=== PATIENT | female | born 1975 | race Caucasian/White ===

== ENCOUNTER 2022-01-13 13:46 | Outpatient (CLI) | payer OTHER, SELFPAY ==
--- NOTE | 2022-01-13 14:00 | CRLHL7_ITS ---
For Patients: As a result of the Century Cures Act, medical imaging exams and procedure reports are released immediately into your electronic medical record. You may view this report before your referring provider. If you have questions, please contact your health care provider. BILATERAL SCREENING MAMMOGRAM WITH COMPUTER-AIDED DETECTION AND TOMOSYNTHESIS TECHNIQUE: CC and MLO views were obtained. These mammographic images have been obtained using full-field digital technique. These mammographic images were interpreted with the benefit of computer-aided detection. Breast Tomosynthesis was used in this interpretation. COMPARISON FILM: 02/10/20, 12/10/18, 11/07/17. FINDINGS: There are scattered areas of fibroglandular density. IMPRESSION: There is no radiographic evidence for malignancy. ASSESSMENT: BI-RADS Category 2: Benign RECOMMENDATION: Routine screening mammogram in 1 year. A lay language report of this examination will be provided to the patient. Tereza Ortiz M.D. Diagnostic/Breast Radiologist [email or web address] PT/Dictated by: Tereza Ortiz MD @ 01/16/2022 8:53:00 AM (Electronically Signed)
== END 2022-01-13 13:47 | disposition home or self-care (01) ==
LOC: MAMMO 13:48
PROVIDERS: PCP Family Medicine; Visit Provider Family Medicine
DX: Z12.31 Encounter for screening mammogram for malignant neoplasm of breast (principal)
CPT/HCPCS: 77063; 77067

== ENCOUNTER 2022-09-28 07:55 | Day surgery (SDC) | payer OTHER, SELFPAY ==
[2022-09-28 08:28] VITALS: BMI 40.7
[2022-09-28 08:31] LABS: Ur HCG Qualitative* Negative (Negative)
[2022-09-28 08:46] VITALS: BP 138/91; PULSE 73; RESP 16; TEMP 37.2; O2SAT 97
[2022-09-28] MEDS: SODIUM CHLORIDE 0.9 % (FLUSH) 10 ML SYRINGE IVF (08:47)
--- NOTE | 2022-09-28 09:15 | CRLHL7_ITS ---
For Patients: As a result of the Century Cures Act, medical imaging exams and procedure reports are released immediately into your electronic medical record. You may view this report before your referring provider. If you have questions, please contact your health care provider. INDICATION: LEFT breast intraductal lesion. Intraductal papilloma. Wire localization prior to resection. Informed consent was obtained. Benefits risks were discussed. Patient agreed to proceed. [place] Protocol: A. Pre-procedure verification complete: Yes 1-relevant information/documentation available, reviewed and properly matched to the patient; 2-consent accurate and complete, 3-equipment and supplies available. B. Site marking complete: Yes Site marked if not in continuous attendance with patient. C. TIME OUT completed: Yes Time Out was conducted just prior to starting procedure to verify the eight required elements: 1-patient identity, 2-consent accurate and complete, 3-position, 4-correct side/site marked (if applicable), 5-procedure, 6-relevant images/results properly labeled and displayed (if applicable), 7-antibiotics/irrigation fluids (if applicable), 8-safety precautions, 9-laboratory results were reviewed. Utilizing sterile technique and 1 percent lidocaine for local anesthetic, a 7 cm Kopan`s wire was advanced into the intraductal lesion within the LEFT breast at approximately the 3 o`clock position at the level of the nipple areolar complex. The patient tolerated the procedure well. No immediate complications. No subsequent imaging (no mammographic images per Dr. Olguin). IMPRESSION: Technically successful ultrasound-guided wire localization of a LEFT intraductal papilloma. No immediate complications. ACR Not applicable Dictated by Austin Huerta MD @ 09/28/2022 12:57:03 PM (Electronically Signed)
--- NOTE | 2022-09-28 09:56 | SUR.PREOP ---
0847: [facility] notified patient ready.
--- NOTE | 2022-09-28 09:56 | SUR.PREOP ---
0915: Imaging department contacted to confirm 0915 start time. Breast Navigator will bring patient to [facility] when available.
--- NOTE | 2022-09-28 09:59 | SUR.PREOP ---
0938: Patient to [facility] via wheelchair.
--- NOTE | 2022-09-28 10:01 | W.ANESCHARGE ---
Anesthesia Charges Start Date/Time Anesthesia Start Date: 09/28/22 Stop Date/Time Anesthesia Stop Date: 09/28/22
[2022-09-28] MEDS: LACTATED RINGERS 1000 ML 1,000 ML 100 ML IV (10:18)
--- NOTE | 2022-09-28 10:26 | PM.GSPRC ---
Operative Note Date of procedure: 09/28/22 Pre-op diagnosis: Left-sided nipple discharge with intraductal papilloma Post-op diagnosis: Same Type of Procedure: Excisional breast biopsy with preoperative wire localization Indications: The patient is a 47-year-old female who presented with unilateral nipple discharge. Workup revealed duct ectasia on the left as well as an intraductal papilloma. Because of the risk of atypia and malignancy, I recommended excision. Procedure Description: After discussing the risks and benefits of the procedure, the patient signed informed consent.? The operative site was marked and the patient was brought to the operating room and placed on the operating table in supine position.? Care was taken to pad the patient's pressure points.?? The patient was then given sedation by anesthesia.?? The operative site was then prepped and draped in the usual sterile fashion.? A time-out was then performed. A periareolar incision was then created at the in border of the areola. The papilloma was noted to be at 3 o'clock on imaging and so the incision was centered laterally. A subcutaneous flap was created inferiorly and the wire was encountered and pulled into the incision. I then proceeded to remove all of the breast tissue behind the areola to encompass the wire. This was not done down to the chest wall, but was taken several cm deep to the wire which had been noted on ultrasound to go through the lesion. Medially, below the nipple I encountered what appeared to be the papilloma. I took my dissection slightly more medial and using a vicryl stitch, reapproximated the breast tissue over this so as not to lose the papilloma. Once this was done, this was inked for margins and sent to pathology. Wound was examined for hemostasis. It appeared excellent. The wound was then closed in layers with 3 0 Vicryl dermal and 4-0 Monocryl subcuticular suture. Sterile dressings were then applied. ? The patient was then woken and transported to the recovery area in stable condition. ? The patient tolerated the procedure well. Findings: Intraductal papilloma in the 3 o'clock position of the left breast. Anesthesia: MAC Surgeon: Susan Olguin MD Estimated blood loss (mL): 10 Additional Specimen Information: Left breast mass Condition: stable Disposition: same day
[2022-09-28] MEDS: CEFAZOLIN 2 GM INJ IVP (10:30)
[2022-09-28 11:17] VITALS: BP 107/63; PULSE 77; RESP 16; TEMP 37; O2SAT 94
--- NOTE | 2022-09-28 11:22 | W.ANESCHARGE ---
Anesthesia Charges Start Date/Time Anesthesia Start Date: 09/28/22 Anesthesia Start Time: 10:26 Stop Date/Time Anesthesia Stop Date: 09/28/22 Anesthesia Stop Time: 11:22
[2022-09-28 11:35] VITALS: BP 117/68; PULSE 70; RESP 16; O2SAT 94
[2022-09-28 11:45] VITALS: BP 118/85; PULSE 77; RESP 16; O2SAT 97
[2022-09-28 12:00] VITALS: BP 128/82; PULSE 68; RESP 16; O2SAT 93
== END 2022-09-28 12:38 | disposition home or self-care (01) ==
PROVIDERS: PCP Family Medicine; Visit Provider Surgery
PROC: (CPT 19125; principal; 2022-09-28 09:30)
DX: D24.2 Benign neoplasm of left breast (principal); N64.52 Nipple discharge
CPT/HCPCS: 19125; 00400; 19285; 81025; 88307; 88341; 88342; C1769; J0690; J1100; J2250; J2405; J2704; J3010; J7120

== ENCOUNTER 2022-12-20 08:13 | Outpatient (CLI) | payer OTHER, SELFPAY ==
--- NOTE | 2022-12-20 08:15 | CRLHL7_ITS ---
For Patients: As a result of the Century Cures Act, medical imaging exams and procedure reports are released immediately into your electronic medical record. You may view this report before your referring provider. If you have questions, please contact your health care provider. BILATERAL BREAST MRI WITHOUT AND WITH GADOLINIUM CLINICAL HISTORY: 47-year-old female who recently had an excisional biopsy of the LEFT breast 6 o`clock retroareolar for papilloma, ultimately yielding atypical ductal hyperplasia. No invasive malignancy found. Excision was performed in 09/2022. INDICATION FOR BREAST MRI: Screening breast MRI in this high-risk woman. COMPARISON STUDIES: Mammogram 01/13/2022. CONTRAST: 15 cc Dotarem. TECHNIQUE: The patient was positioned prone using a breast coil. Multiple imaging sequences were obtained using 1-1.5 mm thick slices with no gap. The image sequences include T2-weighted STIR in the axial plane, T1-weighted nonfat-saturated gradient echo in the axial plane, pre- and post-contrast T1-weighted FLASH 3D with fat suppression in the axial plane, and T1-weighted FLASH high-resolution 3D with fat suppression in the sagittal plane. Image post-processing was performed on a [employer] workstation. Complex 3D rendering including maximum intensity projections (MIPS) and volumetric renderings were obtained to optimize visualization of the extent of pathology and relationship to the nipple, skin, and chest wall. This aids in determining feasibility of breast conservation surgery. Subtraction, multiplanar reconstruction, mean curve determination, and angiogenesis mapping were also performed. The study was technically adequate. FINDINGS: Amount of Fibroglandular Tissue: Scattered fibroglandular tissue. Breast Background Enhancement: Minimal. LEFT and RIGHT Breast: There is architectural distortion LEFT retroareolar breast at the previous surgical excision site. There is minimal non-mass enhancement at the excision site with type I and typeII enhancement kinetics. This probably is related to post-biopsy changes. There is otherwise no suspicious enhancement in either breast. Lymph Nodes: No abnormal axillary lymph nodes. IMPRESSIONS AND RECOMMENDATIONS: Post-surgical changes of LEFT retroareolar excision with minimal non-mass enhancement at the surgical excision site, likely reflecting post-biopsy changes. There is no suspicious enhancement in either breast. No abnormal morphology axillary lymph nodes. Recommend the patient continue with yearly screening mammography. If screening MRIs are felt to be indicated, recommend these be off-set at 6-month intervals with the screening mammogram. BI-RADS: BI-RADS Category 2: Benign Tereza Ortiz M.D. Diagnostic/Breast Radiologist [email or web address] LISA/Dictated by: Tereza Ortiz MD @ 12/25/2022 4:01:00 PM (Electronically Signed)
== END 2022-12-20 08:14 | disposition home or self-care (01) ==
LOC: MRI 08:14
PROVIDERS: PCP Family Medicine; Visit Provider Surgery
DX: Z12.39 Encounter for other screening for malignant neoplasm of breast (principal); N60.92 Unspecified benign mammary dysplasia of left breast
CPT/HCPCS: 77049; A9575

== ENCOUNTER 2022-12-20 09:44 | Outpatient (RCR) | payer OTHER, SELFPAY | END 2023-06-18 23:59 | disposition home or self-care (01) | LOC: CCIC 09:44 | PROVIDERS: PCP Family Medicine; Visit Provider Internal Medicine Hematology & Oncology | DX: N60.92 Unspecified benign mammary dysplasia of left breast (principal) | CPT/HCPCS: 99202; 99205 ==

== ENCOUNTER 2023-07-20 07:27 | Outpatient (CLI) | payer OTHER, SELFPAY ==
--- NOTE | 2023-07-20 07:45 | MM_ITS ---
Patient: NYDIA CAMPBELL Facility:?[facility] Patient ID:?[id number] Site Patient ID:?[id number]. Site :?[id number] Study:?XRay-Breast Bilateral 3D W/CAD-07/20/2023 8:27:46 AM Ordering Physician:Aida Final Report: BILATERAL SCREENING MAMMOGRAM WITH COMPUTER-AIDED DETECTION AND TOMOSYNTHESIS TECHNIQUE: CC and MLO views were obtained. These mammographic images have been obtained using full-field digital technique. These mammographic images were interpreted with the benefit of computer-aided detection. Breast Tomosynthesis was used in this interpretation. COMPARISON FILM: 01/13/22, 02/10/20, 12/10/18. FINDINGS: There are scattered areas of fibroglandular density. IMPRESSION: There is no radiographic evidence for malignancy. ASSESSMENT: BI-RADS Category 2: Benign RECOMMENDATION: Routine screening mammogram in 1 year. A lay language report of this examination will be provided to the patient. Oumar Rodriguez M.D. Diagnostic Radiologist [email or web address] DSM/sp R& Transcribed: 4:35 p.m. SP/Dictated by: Oumar Rodriguez MD @ 07/23/2023 12:11:00 PM Signed by:?Oumar Rodriguez MD @07/23/2023 5:13:40 PM (Electronic Signature)
== END 2023-07-20 07:28 | disposition home or self-care (01) ==
LOC: MAMMO 07:28
PROVIDERS: PCP Family Medicine; Visit Provider Surgery
DX: Z12.31 Encounter for screening mammogram for malignant neoplasm of breast (principal)
CPT/HCPCS: 77063; 77067

== ENCOUNTER 2024-02-01 07:09 | Outpatient (CLI) | payer OTHER, SELFPAY ==
--- NOTE | 2024-02-01 07:15 | CRLHL7_ITS ---
For Patients: As a result of the Century Cures Act, medical imaging exams and procedure reports are released immediately into your electronic medical record. You may view this report before your referring provider. If you have questions, please contact your health care provider. BILATERAL BREAST MRI WITHOUT AND WITH GADOLINIUM CLINICAL HISTORY: At increased risk for breast cancer due to previous LEFT breast excisional biopsy performed due to nipple discharge and papilloma. The pathology showed atypical ductal hyperplasia. No current breast related concerns. INDICATION FOR BREAST MRI: High-risk screening breast MRI. COMPARISON STUDIES: Breast MRI 12/20/2022. Mammograms 07/20/2023, 01/13/2022 and 02/10/2020. CONTRAST: 30 mL Dotarem. TECHNIQUE: The patient was positioned prone using a breast coil. Multiple imaging sequences were obtained using 1-1.5 mm thick slices with no gap. The image sequences include T2-weighted STIR in the axial plane, T1-weighted nonfat-saturated gradient echo in the axial plane, pre- and post-contrast T1-weighted FLASH 3D with fat suppression in the axial plane, and T1-weighted FLASH high resolution 3D with fat suppression in the sagittal plane. Image post-processing was performed on a [email or web address] workstation. Complex 3D rendering including maximum intensity projections (MIPS) and volumetric renderings were obtained to optimize visualization of the extent of pathology and relationship to the nipple, skin, and chest wall. This aids in determining feasibility of breast conservation surgery. Subtraction, multiplanar reconstruction, mean curve determination, and angiogenesis mapping were also performed. The study was technically adequate. FINDINGS: Amount of Fibroglandular Tissue: Scattered fibroglandular tissue. Breast Background Enhancement: Mild. RIGHT Breast: There is no suspicious mass or non-mass enhancement. LEFT Breast: There are expected postsurgical changes any outer anterior breast near the nipple. No suspicious mass or non-mass enhancement. Lymph Nodes: No abnormal morphology lymph nodes. IMPRESSIONS AND RECOMMENDATIONS: 1. No MRI evidence of malignancy in either breast. 2. Annual screening mammography is recommended. If clinically indicated, continued screening breast MRI may also be performed, staggered at six-month intervals with screening mammography. BI-RADS Category 2: Benign Dictated by Aster Jimenez MD @ 02/04/2024 3:58:21 PM jj/Dictated by: Aster Jimenez MD @ 02/04/2024 4:01:00 PM (Electronically Signed)
== END 2024-02-01 07:10 | disposition home or self-care (01) ==
LOC: MRI 07:10
PROVIDERS: PCP Family Medicine; Visit Provider Surgery
DX: Z12.39 Encounter for other screening for malignant neoplasm of breast (principal); N60.99 Unspecified benign mammary dysplasia of unspecified breast
CPT/HCPCS: 77049; A9575

== ENCOUNTER 2024-10-10 09:31 | Outpatient (CLI) | payer OTHER, SELFPAY ==
--- NOTE | 2024-10-10 09:45 | CRLHL7_ITS ---
For Patients: As a result of the Century Cures Act, medical imaging exams and procedure reports are released immediately into your electronic medical record. You may view this report before your referring provider. If you have questions, please contact your health care provider. INDICATION: BILATERAL SCREENING MAMMOGRAM, ASYMPTOMATIC 49 Y/O FEMALE COMPARISON: 07/20/2023, 01/13/2022, 02/10/2020 TECHNIQUE: Digital mammogram in CC and MLO projections including computer-aided detection (CAD) and tomosynthesis. BREAST COMPOSITION: There are scattered areas of fibroglandular density. FINDINGS: No suspicious findings. ASSESSMENT: BI-RADS 1 Negative RECOMMENDATION: Annual screening mammogram. A lay language report of this examination will be provided to the patient. Dictated by: Oumar Rodriguez MD @ 10/13/2024 10:13:51 (Electronically Signed)
== END 2024-10-10 09:32 | disposition home or self-care (01) ==
PROVIDERS: PCP Family Medicine; Visit Provider Surgery
DX: Z12.31 Encounter for screening mammogram for malignant neoplasm of breast (principal)
CPT/HCPCS: 77063; 77067